=== PATIENT | female | born 1935 | race Caucasian/White ===

== ENCOUNTER 2016-07-10 20:59 | Outpatient (CLI) ==
[2015-08-31 14:19] VITALS: BMI 24.5
[2016-07-10 22:06] LABS: BILIRUBIN,URINE Negative (NEGATIVE); KETONES,URINE Negative (NEGATIVE); LEUKOCYTE ESTERASE ,URINE Trace (NEGATIVE); NITRITE,URINE Positive (NEGATIVE); PROTEIN,URINE Negative (NEGATIVE); URINE, BLOOD Negative (NEGATIVE)
[2016-07-10 22:14] LABS: ADD URINE MICROSCOPIC YES
[2016-07-10 22:15] LABS: BACTERIA,URINE 1+ (NOT PRESENT)
== END 2016-07-10 21:00 | disposition home or self-care (01) ==
LOC: NONPT 20:59
PROVIDERS: ATTEND Family Medicine
DX: F02.81 Dementia in other diseases classified elsewhere, unspecified severity, with behavioral disturbance (principal); F32.9 Major depressive disorder, single episode, unspecified; D51.8 Other vitamin B12 deficiency anemias; F41.9 Anxiety disorder, unspecified; R82.90 Unspecified abnormal findings in urine
CPT/HCPCS: 81001; 87086; 87186